=== PATIENT | female | born 1965 | race Two or more races ===

== ENCOUNTER 2017-07-13 13:10 | Outpatient (CLI) | payer BC | END 2017-07-13 23:59 | disposition home or self-care (01) | LOC: WOU 13:10 | PROVIDERS: ATTEND Surgery | DX: Z48.817 Encounter for surgical aftercare following surgery on the skin and subcutaneous tissue (principal); I96 Gangrene, not elsewhere classified; E66.01 Morbid (severe) obesity due to excess calories; Z98.890 Other specified postprocedural states; Z68.41 Body mass index [BMI] 40.0-44.9, adult; Z71.3 Dietary counseling and surveillance; M06.9 Rheumatoid arthritis, unspecified; D64.9 Anemia, unspecified; Z79.899 Other long term (current) drug therapy | CPT/HCPCS: 11043; A6402 ==

== ENCOUNTER 2017-07-20 13:40 | Outpatient (CLI) | payer BC | END 2017-07-20 23:59 | disposition home or self-care (01) | LOC: WOU 13:40 | PROVIDERS: ATTEND Surgery | DX: T81.89XA Other complications of procedures, not elsewhere classified, initial encounter (principal); E66.01 Morbid (severe) obesity due to excess calories; Z68.41 Body mass index [BMI] 40.0-44.9, adult; I96 Gangrene, not elsewhere classified; D64.9 Anemia, unspecified | CPT/HCPCS: 11043; A6402; A6407 ==

== ENCOUNTER 2017-08-10 14:30 | Outpatient (CLI) | payer BC | END 2017-08-10 23:59 | disposition home or self-care (01) | LOC: WOU 14:30 | PROVIDERS: ATTEND Surgery | DX: T81.89XA Other complications of procedures, not elsewhere classified, initial encounter (principal); E66.01 Morbid (severe) obesity due to excess calories; Z68.41 Body mass index [BMI] 40.0-44.9, adult; Z71.3 Dietary counseling and surveillance; D69.59 Other secondary thrombocytopenia; D64.9 Anemia, unspecified; Z90.49 Acquired absence of other specified parts of digestive tract; J45.909 Unspecified asthma, uncomplicated; M19.90 Unspecified osteoarthritis, unspecified site; Z79.899 Other long term (current) drug therapy | CPT/HCPCS: 11042; A6402 ==

== ENCOUNTER 2017-08-24 14:15 | Outpatient (CLI) | payer BC ==
[~2017-08-24 14:15] MED LIST: ACETAMINOPHEN ES 500 MG TABLET ONE
== END 2017-08-24 23:59 | disposition home health service (06) ==
LOC: WOU 14:15
PROVIDERS: ATTEND Surgery
DX: T81.89XA Other complications of procedures, not elsewhere classified, initial encounter (principal); E66.01 Morbid (severe) obesity due to excess calories; Z68.41 Body mass index [BMI] 40.0-44.9, adult; Z71.3 Dietary counseling and surveillance; Z90.49 Acquired absence of other specified parts of digestive tract; J45.909 Unspecified asthma, uncomplicated; Z79.899 Other long term (current) drug therapy; M19.90 Unspecified osteoarthritis, unspecified site; D64.9 Anemia, unspecified
CPT/HCPCS: 11042; A6402

== ENCOUNTER 2017-08-31 14:15 | Outpatient (CLI) | payer BC | END 2017-08-31 23:59 | disposition home health service (06) | LOC: WOU 14:15 | PROVIDERS: ATTEND Surgery | DX: T81.89XA Other complications of procedures, not elsewhere classified, initial encounter (principal); E66.01 Morbid (severe) obesity due to excess calories; Z68.41 Body mass index [BMI] 40.0-44.9, adult; Z71.3 Dietary counseling and surveillance; M06.9 Rheumatoid arthritis, unspecified; D64.9 Anemia, unspecified | CPT/HCPCS: 11043; A6402 ==

== ENCOUNTER 2017-09-07 08:48 | Outpatient (CLI) | payer BC ==
[2017-09-07] MEDS ORDERED: IOHEXOL-300 100 ML VIAL IV ONE (09:15)
[2017-09-07] MEDS ORDERED: IV NS 0.9% 250 ML IV ONE (09:15)
[2017-09-07] MEDS ORDERED: CT SWABBABLE VALVE TRANS SET 1 EA INFUS.SET MC ONE (09:15)
== END 2017-09-07 23:59 | disposition home or self-care (01) ==
LOC: CT 08:48
PROVIDERS: ATTEND Surgery
DX: M47.894 Other spondylosis, thoracic region (principal); S21.102A Unspecified open wound of left front wall of thorax without penetration into thoracic cavity, initial encounter; Z90.49 Acquired absence of other specified parts of digestive tract; X58.XXXA Exposure to other specified factors, initial encounter; Y93.89 Activity, other specified; Y92.89 Other specified places as the place of occurrence of the external cause; Y99.8 Other external cause status
CPT/HCPCS: 71260; J7050; Q9967

== ENCOUNTER 2017-09-07 14:17 | Outpatient (CLI) | payer BC | END 2017-09-07 23:59 | disposition home or self-care (01) | LOC: WOU 14:17 | PROVIDERS: ATTEND Surgery | DX: Z09 Encounter for follow-up examination after completed treatment for conditions other than malignant neoplasm (principal); E66.01 Morbid (severe) obesity due to excess calories; Z68.41 Body mass index [BMI] 40.0-44.9, adult; Z71.3 Dietary counseling and surveillance; M06.9 Rheumatoid arthritis, unspecified; D64.9 Anemia, unspecified | CPT/HCPCS: A6402; G0463 ==